=== PATIENT | male | born 1990 | race Caucasian/White ===

== ENCOUNTER 2016-06-07 19:16 | Emergency (ER) | payer OTHER ==
[~2016-06-07] VITALS: Ht 175.3 cm; Wt 68.0 kg
--- NOTE | 2016-06-07 20:19 | REP ---
RIGHT FOOT SERIES: Four views of the right foot are performed. There is a fracture at the base of the first metatarsal. This appears to extend into the joint between the base of the first metatarsal and medial cuneiform bone. No other fracture or dislocation is seen. IMPRESSION: Fracture base of first metatarsal. Signed by Brian Broderick MD 06/08/2016 04:43 P
[2016-06-07] MEDS ORDERED: NAPROXEN 250 MG TAB PO ONE (20:30)
[2016-06-07 21:02] VITALS: BP 143/79
== END 2016-06-07 21:16 | disposition home or self-care (01) ==
LOC: M ED 20:31
DX: S92.314A Nondisplaced fracture of first metatarsal bone, right foot, initial encounter for closed fracture (principal); W19.XXXA Unspecified fall, initial encounter; Y92.019 Unspecified place in single-family (private) house as the place of occurrence of the external cause; Y93.89 Activity, other specified; Y99.8 Other external cause status

== ENCOUNTER 2021-06-16 11:15 | Emergency (ER) | payer OTHER, SELFPAY ==
[~2021-06-16] VITALS: Ht 175.3 cm; Wt 68.2 kg
[2021-06-16] MEDS ORDERED: HALOPERIDOL 5MG/ML VIAL (J1630 PER 1) IV ONE (11:40)
[2021-06-16] MEDS ORDERED: CAPSAICIN 0.025% CR 60 GM TOP ONE (11:40)
[2021-06-16] MEDS ORDERED: ONDANSETRON 4MG/2ML VIAL IV ONE (11:40)
[2021-06-16] MEDS ORDERED: NS 1,000 ML IV ONE (11:40)
[2021-06-16 12:18] LABS: BASO % 0.3 % (0.0-1.0); EOS # 0.1 10^3/uL (0.0-0.5); EOS % 0.6 % (0.0-3.0); HEMATOCRIT 42.5 % (42.0-52.0); HEMOGLOBIN 14.5 g/dl (13.5-17.5); LYMPH # 3.4 10^3/uL (1.5-5.0); LYMPH % 29.8 % (24.0-44.0); MEAN CORPUSCULAR HEMOGLOBIN 30.1 pg (27.0-33.0); MEAN CORPUSCULAR HGB CONC 34.1 g/dl (32.0-36.5); MEAN CORPUSCULAR VOLUME 88.4 fl (80.0-96.0); MONO # 0.9 10^3/uL (0.0-0.8); MONO % 7.7 % (2.0-8.0); NEUTROPHILS # 6.9 10^3/uL (1.5-8.5); NEUTROPHILS % 61.2 % (36.0-66.0); PLATELET COUNT, AUTOMATED 389 10^3/uL (150-450); RED BLOOD COUNT 4.81 10^6/uL (4.30-6.10); WHITE BLOOD COUNT 11.3 10^3/uL (4.0-10.0)
[2021-06-16 12:39] VITALS: BP 121/56
[2021-06-16 12:58] LABS: ALBUMIN 4.5 GM/DL (3.2-5.2); ALT/SGPT 25 U/L (12-78); BILIRUBIN,DIRECT 0.2 MG/DL (0.0-0.2); BLOOD UREA NITROGEN 17 MG/DL (7-18); CARBON DIOXIDE LEVEL 27 MEQ/L (21-32); CHLORIDE LEVEL 107 MEQ/L (98-107); CREATININE FOR GFR 1.14 MG/DL (0.70-1.30); GLOMERULAR FILTRATION RATE > 60.0 (>60); GLUCOSE, FASTING 95 MG/DL (70-100); LIPASE 100 U/L (73-393); POTASSIUM SERUM 3.7 MEQ/L (3.5-5.1); SODIUM LEVEL 140 MEQ/L (136-145)
== END 2021-06-16 12:59 | disposition left against medical advice (07) ==
LOC: M ED 11:15
DX: F12.288 Cannabis dependence with other cannabis-induced disorder (principal); F17.200 Nicotine dependence, unspecified, uncomplicated
CPT/HCPCS: 80048; 80076; 83690; 85025; 96361; 96374; 96375; 99284; J1630; J2405

== ENCOUNTER 2022-12-02 23:58 | Emergency (ER) | payer OTHER, SELFPAY ==
[~2022-12-02] VITALS: Ht 175.3 cm; Wt 66.3 kg
[2022-12-02 23:58] VITALS: BP 131/73; TEMP 97.8; O2SAT 100
[2022-12-03] MEDS ORDERED: NEOSPORIN TOP OINT 15GM TOP STA (01:26)
[2022-12-03] MEDS ORDERED: KETOROLAC 60MG 2ML VIAL IM ONE (01:30)
[2022-12-03] MEDS ORDERED: IBUP-1022 PO (01:30)
[2022-12-03] MEDS ORDERED: METH-1164 PO (01:30)
== END 2022-12-03 02:11 | disposition home or self-care (01) ==
LOC: M ED 23:58
DX: S43.401A Unspecified sprain of right shoulder joint, initial encounter (principal); V18.0XXA Pedal cycle driver injured in noncollision transport accident in nontraffic accident, initial encounter; Y92.9 Unspecified place or not applicable; Z79.1 Long term (current) use of non-steroidal anti-inflammatories (NSAID); Z79.899 Other long term (current) drug therapy
CPT/HCPCS: 73030; 96372; 99282; J1885

== ENCOUNTER → 2022-12-12 | Outpatient (CLI) | payer OTHER ==
[~2022-12-12] MED LIST: IBUP-1022 PO; METH-1164 PO
== END ==
LOC: M SOG 14:50
PROVIDERS: ATTEND Physician Assistant
DX: M25.511 Pain in right shoulder (principal)

== ENCOUNTER → 2023-01-25 | Outpatient (CLI) | payer OTHER | LOC: M SOG 08:02 | PROVIDERS: ATTEND Physician Assistant | DX: M25.511 Pain in right shoulder (principal) ==

== ENCOUNTER 2023-02-14 11:17 | Emergency (ER) | payer OTHER ==
[~2023-02-14] VITALS: Ht 175.3 cm; Wt 64.1 kg
[2023-02-14 11:26] VITALS: TEMP 98
[2023-02-14] MEDS ORDERED: PROMETHAZINE 25MG/ML 1ML VIAL IV ONE (11:35)
[2023-02-14] MEDS ORDERED: PANTOPRAZOLE 40MG VIAL IV ONE (11:35)
[2023-02-14] MEDS ORDERED: NS 1,000 ML IV ONE (11:35)
[2023-02-14 11:57] LABS: BASO % 0.1 % (0.0-1.0); EOS # 0.1 10^3/uL (0.0-0.5); EOS % 0.5 % (0.0-3.0); HEMATOCRIT 43.2 % (42.0-52.0); HEMOGLOBIN 14.9 g/dl (13.5-17.5); LYMPH % 12.9 % (24.0-44.0); MEAN CORPUSCULAR HEMOGLOBIN 30.4 pg (27.0-33.0); MEAN CORPUSCULAR HGB CONC 34.5 g/dl (32.0-36.5); MEAN CORPUSCULAR VOLUME 88.2 fl (80.0-96.0); MONO # 1.1 10^3/uL (0.0-0.8); NEUTROPHILS % 79.2 % (36.0-66.0); PLATELET COUNT, AUTOMATED 283 10^3/uL (150-450); WHITE BLOOD COUNT 15.1 10^3/uL (4.0-10.0)
[2023-02-14 12:30] LABS: RSV AMPLIFICATION NEGATIVE (NEGATIVE)
[2023-02-14 12:31] LABS: LIPASE 33 U/L (12-53)
[2023-02-14 12:33] LABS: ALBUMIN 4.8 G/DL (3.2-5.2); ALKALINE PHOSPHATASE 62 U/L (46-116); ALT/SGPT 15 U/L (7.0-40); AST/SGOT 12 U/L (<34); BILIRUBIN,DIRECT 0.4 MG/DL (<0.4); BLOOD UREA NITROGEN 17 MG/DL (9-23); CALCIUM LEVEL 9.9 MG/DL (8.5-10.1); CARBON DIOXIDE LEVEL 25 MMOL/L (20-31); CHLORIDE LEVEL 104 MMOL/L (98-107); CREATININE FOR GFR 0.82 MG/DL (0.70-1.30); GLOMERULAR FILTRATION RATE > 60.0 (>60); GLUCOSE, FASTING 90 MG/DL (60-100); POTASSIUM SERUM 3.4 MMOL/L (3.5-5.1); SODIUM LEVEL 139 MMOL/L (136-145); TOTAL PROTEIN 7.6 G/DL (5.7-8.2)
[2023-02-14 13:16] VITALS: BP 124/74; O2SAT 100
== END 2023-02-14 13:32 | disposition left against medical advice (07) ==
LOC: EDBD 11:17 → M ED 11:17
DX: R10.9 Unspecified abdominal pain (principal); R11.2 Nausea with vomiting, unspecified; D72.829 Elevated white blood cell count, unspecified; F12.90 Cannabis use, unspecified, uncomplicated; Z79.1 Long term (current) use of non-steroidal anti-inflammatories (NSAID); Z79.891 Long term (current) use of opiate analgesic
CPT/HCPCS: 71045; 80048; 80076; 83690; 85025; 87631; 96361; 96374; 99284; C9113; J2550

== ENCOUNTER 2024-06-04 02:34 | Emergency (ER) | payer OTHER ==
[~2024-06-04] VITALS: Ht 175.3 cm; Wt 62.1 kg
[2024-06-04 02:36] VITALS: TEMP 97.5
[2024-06-04 03:28] LABS: BASO % 0.1 % (0.0-1.0); HEMATOCRIT 47.6 % (42.0-52.0); HEMOGLOBIN 16.6 g/dl (13.5-17.5); LYMPH # 1.7 10^3/uL (1.5-5.0); LYMPH % 7.7 % (24.0-44.0); MEAN CORPUSCULAR HEMOGLOBIN 30.6 pg (27.0-33.0); MEAN CORPUSCULAR HGB CONC 34.9 g/dl (32.0-36.5); MEAN CORPUSCULAR VOLUME 87.8 fl (80.0-96.0); MONO # 1.6 10^3/uL (0.0-0.8); MONO % 7.1 % (2.0-8.0); NEUTROPHILS # 18.6 10^3/uL (1.5-8.5); NEUTROPHILS % 84.6 % (36.0-66.0); PLATELET COUNT, AUTOMATED 351 10^3/uL (150-450); RED BLOOD COUNT 5.42 10^6/uL (4.30-6.10)
[2024-06-04] MEDS: HALOPERIDOL LACTATE 5MG/ML VIAL IV ONE (03:51)
[2024-06-04] MEDS: KETOROLAC 30 MG/ML 1ML VIAL IV ONE (03:51)
[2024-06-04 03:54] LABS: ALBUMIN 5.9 G/DL (3.2-5.2); BILIRUBIN,DIRECT 0.5 MG/DL (<0.4); BILIRUBIN,TOTAL 1.4 MG/DL (0.3-1.2); CALCIUM LEVEL 11.1 MG/DL (8.5-10.1); CREATININE FOR GFR 1.48 MG/DL (0.70-1.30); GLOMERULAR FILTRATION RATE 64.5 (>60); POTASSIUM SERUM 4.5 MMOL/L (3.5-5.1); TOTAL PROTEIN 9.3 G/DL (5.7-8.2)
[2024-06-04] MEDS: NS (Normal Saline) 0.9% 1,000 ML IV ONE (04:24)
[2024-06-04 04:30] VITALS: BP 112/69; O2SAT 96
== END 2024-06-04 05:01 | disposition left against medical advice (07) ==
LOC: M ED 02:34
DX: R10.9 Unspecified abdominal pain (principal); N17.9 Acute kidney failure, unspecified; F17.210 Nicotine dependence, cigarettes, uncomplicated; F12.10 Cannabis abuse, uncomplicated; Z79.1 Long term (current) use of non-steroidal anti-inflammatories (NSAID); Z79.899 Other long term (current) drug therapy; Z53.9 Procedure and treatment not carried out, unspecified reason
CPT/HCPCS: 80048; 80076; 83690; 85025; 96361; 96374; 99284; J1630; J1885

== ENCOUNTER 2024-09-18 01:32 | Emergency (ER) | payer OTHER ==
[~2024-09-18] VITALS: Ht 175.3 cm; Wt 60.5 kg
[~2024-09-18 01:32] MED LIST changes: +steroid cream TOP
[2024-09-18 01:37] VITALS: BP 123/74; TEMP 96.7; O2SAT 97
[2024-09-18] MEDS: ONDANSETRON 4MG ORAL DISINTEGRATING TAB PO ONE (02:27)
[2024-09-19] MEDS ORDERED: PANT40TA29 PO (11:07)
[2024-09-19] MEDS ORDERED: ONDA-282 PO (11:07)
== END 2024-09-18 02:43 | disposition left against medical advice (07) ==
LOC: M ED 01:32
DX: Z53.21 Procedure and treatment not carried out due to patient leaving prior to being seen by health care provider (principal)

== ENCOUNTER 2024-09-18 12:35 | Inpatient (IN) | payer OTHER ==
[~2024-09-18] VITALS: Ht 175.3 cm; Wt 69.0 kg
[2024-09-18 13:55] LABS: BASO # 0.0 10^3/uL (0.0-0.2); BASO % 0.1 % (0.0-1.0); EOS # 0.0 10^3/uL (0.0-0.5); EOS % 0.0 % (0.0-3.0); LYMPH # 2.5 10^3/uL (1.5-5.0); LYMPH % 16.9 % (24.0-44.0); MONO # 1.4 10^3/uL (0.0-0.8); MONO % 9.5 % (2.0-8.0); NEUTROPHILS # 10.8 10^3/uL (1.5-8.5); NEUTROPHILS % 73.2 % (36.0-66.0); PLATELET COUNT, AUTOMATED 360 10^3/uL (150-450)
[2024-09-18] MEDS: ONDANSETRON 4MG ORAL DISINTEGRATING TAB PO ONE (14:17)
[2024-09-18 14:29] LABS: ALT/SGPT 24.0 U/L (7.0-40); AST/SGOT 22.0 U/L (<34); CALCIUM LEVEL 10.8 MG/DL (8.5-10.1); CARBON DIOXIDE LEVEL 23.0 MMOL/L (20-31); CHLORIDE LEVEL 92.0 MMOL/L (98-107); CREATININE FOR GFR 2.4 MG/DL (0.70-1.30); GLOMERULAR FILTRATION RATE 35.9 (>60); POTASSIUM SERUM 3.7 MMOL/L (3.5-5.1); SODIUM LEVEL 133.0 MMOL/L (136-145)
[2024-09-18] MEDS: PANTOPRAZOLE 40MG VIAL IV ONE (16:10)
[2024-09-18] MEDS: NS (Normal Saline) 0.9% 1,000 ML IV ONE ×2 (16:11→18:39)
[2024-09-18] MEDS: PROMETHAZINE 25MG/ML 1ML VIAL IV ONE (16:50)
[2024-09-18] MEDS ORDERED: HOME MED LIST COMPLETE! XX SCH (17:45)
[2024-09-18] MEDS ORDERED: ONDANSETRON 4MG 2ML VIAL IV PRN (18:35)
[2024-09-18] MEDS: METOCLOPRAMIDE 10 MG TAB PO SCH (18:47)
[2024-09-18 19:09] LABS: MAGNESIUM LEVEL 2.3 MG/DL (1.8-2.4)
[2024-09-18] MEDS: NS (Normal Saline) 0.9% 1,000 ML IV SCH (19:23)
[2024-09-18] MEDS: PANTOPRAZOLE 40MG VIAL IV SCH (19:23)
[2024-09-18 22:37] VITALS: BP 110/65; TEMP 97.9; O2SAT 99
[2024-09-18 23:25] LABS: AMPHETAMINES LEVEL URINE NEGATIVE (NEGATIVE); BARBITURATES URINE NEGATIVE (NEGATIVE); BENZODIAZEPINES URINE NEGATIVE (NEGATIVE); COCAINE METABOLITE URINE NEGATIVE (NEGATIVE); METHADONE URINE NEGATIVE (NEGATIVE); OPIATES URINE NEGATIVE (NEGATIVE); PHENCYCLIDINE URINE NEGATIVE (NEGATIVE)
[2024-09-18 23:31] LABS: CANNABINOIDS URINE POSITIVE (NEGATIVE)
[2024-09-18 23:32] LABS: APPEARANCE, URINE HAZY (CLEAR); BACTERIA, URINE AUTO NEGATIVE (NEGATIVE); BILIRUBIN, URINE AUTO NEGATIVE (NEGATIVE); BLOOD, URINE BLOOD NEGATIVE (NEGATIVE); GLUCOSE, URINE (UA) AUTO NEGATIVE (NEGATIVE); KETONE, URINE AUTO TRACE mg/dL (NEGATIVE); LEUKOCYTE ESTERASE, URINE AUTO NEGATIVE (NEGATIVE); NITRITE, URINE AUTO NEGATIVE (NEGATIVE); PROTEIN, URINE AUTO 1+ mg/dL (NEGATIVE); RBC, URINE AUTO 0 /HPF (0-3); SPECIFIC GRAVITY URINE AUTO 1.020 (1.002-1.035); SQUAMOUS EPITHELIAL CELL UR AU 1 /HPF (0-6); UROBILINOGEN, URINE AUTO 0.2 mg/dL (0.0-2.0); WBC, URINE AUTO 2 /HPF (0-3)
[2024-09-19] MEDS: HEPARIN SOD 5000 UNITS/ML 1 ML VIAL/SYRINGE SC SCH (06:00)
[2024-09-19 06:23] VITALS: BP 110/58; TEMP 97.7; O2SAT 98
[2024-09-19 07:24] LABS: BASO # 0.0 10^3/uL (0.0-0.2); BASO % 0.3 % (0.0-1.0); EOS # 0.1 10^3/uL (0.0-0.5); EOS % 0.6 % (0.0-3.0); LYMPH # 3.3 10^3/uL (1.5-5.0); LYMPH % 31.7 % (24.0-44.0); MONO # 1.3 10^3/uL (0.0-0.8); MONO % 12.1 % (2.0-8.0); NEUTROPHILS # 5.7 10^3/uL (1.5-8.5); NEUTROPHILS % 55.0 % (36.0-66.0)
[2024-09-19 07:29] LABS: PLATELET COUNT, AUTOMATED 216 10^3/uL (150-450)
[2024-09-19 07:43] LABS: CALCIUM LEVEL 8.2 MG/DL (8.5-10.1); CARBON DIOXIDE LEVEL 26 MMOL/L (20-31); CHLORIDE LEVEL 106 MMOL/L (98-107); CREATININE FOR GFR 1.09 MG/DL (0.70-1.30); GLOMERULAR FILTRATION RATE > 90.0 (>60); MAGNESIUM LEVEL 2.4 MG/DL (1.8-2.4); POTASSIUM SERUM 4.0 MMOL/L (3.5-5.1); SODIUM LEVEL 140 MMOL/L (136-145)
[2024-09-19] MEDS ORDERED: ONDA-282 PO (11:07)
[2024-09-19] MEDS ORDERED: PANT40TA29 PO (11:07)
== END 2024-09-19 12:50 | disposition home or self-care (01) | DRG 392 ==
LOC: M ED 12:35 → M ED INP 18:22 → M MS5PR 22:34
PROVIDERS: ADMIT Internal Medicine; ATTEND Internal Medicine
DX: R11.2 Nausea with vomiting, unspecified (principal); N17.9 Acute kidney failure, unspecified; M19.071 Primary osteoarthritis, right ankle and foot; F12.188 Cannabis abuse with other cannabis-induced disorder; F17.210 Nicotine dependence, cigarettes, uncomplicated; Z90.49 Acquired absence of other specified parts of digestive tract; Z79.899 Other long term (current) drug therapy

== ENCOUNTER 2024-10-04 22:32 | Emergency (ER) | payer OTHER ==
[~2024-10-04] VITALS: Ht 175.3 cm; Wt 67.7 kg
[~2024-10-04 22:32] MED LIST changes: -IBUP-1022 PO; +IBUP600T42 PO; +ONDA-282 PO; +PANT40TA29 PO
[2024-10-04] MEDS ORDERED: HYDR-3713 (22:37)
[2024-10-05] MEDS: KETOROLAC 30 MG/ML 1 ML VIAL IM ONE (00:55)
[2024-10-05 02:15] VITALS: BP 123/65; TEMP 97; O2SAT 97
== END 2024-10-05 02:17 | disposition home or self-care (01) ==
LOC: M ED 22:32
DX: S62.312A Displaced fracture of base of third metacarpal bone, right hand, initial encounter for closed fracture (principal); S62.314A Displaced fracture of base of fourth metacarpal bone, right hand, initial encounter for closed fracture; S62.316A Displaced fracture of base of fifth metacarpal bone, right hand, initial encounter for closed fracture; Y92.9 Unspecified place or not applicable; Y93.9 Activity, unspecified; Y99.9 Unspecified external cause status; W23.0XXA Caught, crushed, jammed, or pinched between moving objects, initial encounter; Z79.1 Long term (current) use of non-steroidal anti-inflammatories (NSAID)
CPT/HCPCS: 29125; 73130; 96372; 99283; J1885

== ENCOUNTER → 2024-10-09 | Outpatient (CLI) | payer OTHER ==
[~2024-10-09] MED LIST changes: +HYDR-3713
== END ==
LOC: M SOG 06:49
PROVIDERS: ATTEND Orthopaedic Surgery
DX: M25.541 Pain in joints of right hand (principal)

== ENCOUNTER → 2024-10-23 | Outpatient (CLI) | payer OTHER | LOC: M SOG 07:23 | PROVIDERS: ATTEND Orthopaedic Surgery | DX: S62.314A Displaced fracture of base of fourth metacarpal bone, right hand, initial encounter for closed fracture (principal); S62.316A Displaced fracture of base of fifth metacarpal bone, right hand, initial encounter for closed fracture; W18.30XA Fall on same level, unspecified, initial encounter; Y92.009 Unspecified place in unspecified non-institutional (private) residence as the place of occurrence of the external cause ==

== ENCOUNTER → 2024-11-12 | Outpatient (CLI) | payer OTHER | LOC: M SOG 07:21 | PROVIDERS: ATTEND Orthopaedic Surgery | DX: S62.314D Displaced fracture of base of fourth metacarpal bone, right hand, subsequent encounter for fracture with routine healing (principal) ==

== ENCOUNTER → 2024-12-25 | Outpatient (CLI) | payer OTHER | LOC: M SOG 07:36 | PROVIDERS: ATTEND Orthopaedic Surgery | DX: S62.314D Displaced fracture of base of fourth metacarpal bone, right hand, subsequent encounter for fracture with routine healing (principal); W18.30XD Fall on same level, unspecified, subsequent encounter ==

== ENCOUNTER 2025-01-11 17:28 | Emergency (ER) | payer OTHER ==
[~2025-01-11] VITALS: Ht 175.3 cm; Wt 65.0 kg
[2025-01-11] MEDS: ONDANSETRON 4MG/2ML VIAL IV ONE (19:09)
[2025-01-11] MEDS: NS (Normal Saline) 0.9% 1,000 ML IV ONE (19:09)
[2025-01-11 19:11] LABS: BASO # 0.0 10^3/uL (0.0-0.2); BASO % 0.1 % (0.0-1.0); EOS # 0.0 10^3/uL (0.0-0.5); EOS % 0.3 % (0.0-3.0); LYMPH # 2.6 10^3/uL (1.5-5.0); LYMPH % 27.5 % (24.0-44.0); MONO # 1.3 10^3/uL (0.0-0.8); MONO % 13.5 % (2.0-8.0); NEUTROPHILS # 5.6 10^3/uL (1.5-8.5); NEUTROPHILS % 58.4 % (36.0-66.0); PLATELET COUNT, AUTOMATED 239 10^3/uL (150-450)
[2025-01-11 19:40] LABS: ALT/SGPT 19 U/L (7.0-40); AST/SGOT 22 U/L (<34); CALCIUM LEVEL 8.9 MG/DL (8.5-10.1); CARBON DIOXIDE LEVEL 29 MMOL/L (20-31); CHLORIDE LEVEL 101 MMOL/L (98-107); CREATININE FOR GFR 1.07 MG/DL (0.70-1.30); GLOMERULAR FILTRATION RATE > 90.0 (>60); POTASSIUM SERUM 3.7 MMOL/L (3.5-5.1); SODIUM LEVEL 142 MMOL/L (136-145)
[2025-01-11 20:39] VITALS: BP 129/83; TEMP 99.1; O2SAT 99
[2025-01-11] MEDS ORDERED: ONDA-282 PO (20:41)
== END 2025-01-11 20:52 | disposition home or self-care (01) ==
LOC: M ED 17:28
DX: A08.8 Other specified intestinal infections (principal); E86.0 Dehydration; R11.2 Nausea with vomiting, unspecified; F41.9 Anxiety disorder, unspecified; F12.10 Cannabis abuse, uncomplicated; Z79.1 Long term (current) use of non-steroidal anti-inflammatories (NSAID); Z79.899 Other long term (current) drug therapy
CPT/HCPCS: 36415; 80053; 83690; 85025; 87486; 87581; 87633; 87798; 96361; 96374; 99284; J2405